=== PATIENT | male | born 1950 | race Caucasian/White ===

== ENCOUNTER 2023-09-02 20:51 | Inpatient (IN) | payer MEDICARE, OTHER ==
[~2023-09-02] VITALS: Ht 180.3 cm; Wt 73.5 kg
[~2023-09-02 20:51] MED LIST: ACET-2247 PO; ALLO-45 PO; ASPI-1227 PO; ATOR20TA PO; CHLO3800 TP; DOCU-385 PO; HEPA500018 SQ; INSU100V SQ; ISOS30TA92 PO; KETO15CR2 TP; LEVO100 PO; MERO1VIA27 IV; MEROPENEM 1 GM in SODIUM CHLORIDE 0.9% 100 ML IV SCH; SOTA80TA20 PO; VANC750F IV
[2023-09-02] MEDS ORDERED: 0.9% SODIUM CHLORIDE 10 ML SYRINGE IVP PRN (21:15)
[2023-09-02] MEDS: LORazepam 2 MG/ML VIAL IVP ONE (21:35)
[2023-09-02 22:03] LABS: ANION GAP 8 mmol/L (8-16); CALCIUM, TOTAL 9.2 mg/dL (8.8-10.5); CARBON DIOXIDE 31 mmol/L (22-29); CHLORIDE 102 mmol/L (98-107); CREATININE 1.21 mg/dL (0.60-1.30); GLOMERULAR FILTR. RATE CALC 59 mL/min (>60); GLUCOSE,RANDOM 225 mg/dL (70-110); POTASSIUM 3.4 mmol/L (3.5-5.1); SODIUM SERUM 141 mmol/L (136-145); UREA NITROGEN, BLOOD 27 mg/dL (7-18)
[2023-09-02 22:09] LABS: ALANINE AMINOTRANSFERASE 23 U/L (12-78); ALBUMIN 2.5 g/dL (3.4-5.0); ALKALINE PHOSPHATASE 67 U/L (46-116); ASPARTATE AMINOTRANSFERASE 23 U/L (15-37); BILIRUBIN,TOTAL 0.2 mg/dL (0.1-1.0); TOTAL PROTEIN, SERUM 8.3 g/dL (6.4-8.2)
[2023-09-02 22:12] LABS: BASOPHILS % (AUTO) 0.6 % (0.0-2.0); EOSINOPHILS % (AUTO) 0.1 % (1.0-6.0); HEMATOCRIT 40.9 % (41-53); HEMOGLOBIN 13.1 g/dL (13.5-17.5); LYMPHOCYTES # (AUTO) 0.8 K/uL (1.0-4.8); LYMPHOCYTES % (AUTO) 13.5 % (22.0-44.0); MEAN CORPUSCULAR HEMOGLOBIN 30.4 pg (26.0-34.0); MEAN CORPUSCULAR VOLUME 95 fL (80-100); MONOCYTES # (AUTO) 0.3 K/uL (0.1-1.0); NEUTROPHILS # (AUTO) 4.5 K/uL (1.8-7.7); NEUTROPHILS % (AUTO) 80.8 % (40.0-70.0); PLATELET COUNT (AUTO) 205 K/uL (150-450); RED CELL DISTRIBUTION WIDTH 15.2 % (11.5-14.5); TROPONIN I-HIGH SENSITIVITY 48 ng/L (<76); WHITE BLOOD COUNT (AUTO) 5.6 K/uL (4.5-11.0)
[2023-09-02 22:18] LABS: B-TYPE NATRIURETIC PEPTIDE 1080 pg/mL (0-100); INR 1.1 (0.9-1.1); PROTHROMBIN TIME 11.9 SEC (9.4-11.6)
[2023-09-02 22:32] LABS: LACTIC ACID 6.3 mmol/L (0.4-2.0)
[2023-09-02] MEDS: LevETIRAcetam 1,500 MG in DEXTROSE 5%-WATER 100 ML IV ONE (23:28)
[2023-09-02] MEDS: FUROSEMIDE 40 MG/4 ML VIAL IVP ONE (23:29)
[2023-09-02] MEDS: *CLINICAL-MEROPENEM DOSING CLINICAL ONE (23:39)
[2023-09-02 23:44] LABS: COVID AG,FIA SOURCE NASAL SWAB
[2023-09-02] MEDS ORDERED: BISACODYL 10 MG RECTAL RECTAL SUPPOSITORY PR PRN (23:45)
[2023-09-02] MEDS ORDERED: ONDANSETRON HCL 4 MG/2 ML VIAL IVP PRN (23:45)
[2023-09-02] MEDS ORDERED: INSULIN LISPRO 100 UNITS/ML SQ PRN (23:45)
[2023-09-03] LABS: SARS-COV2 (COVID) ANTIGEN,FIA Negative (Negative)
[2023-09-03 00:01] LABS: INFLUENZA TYPE A NEGATIVE FOR TYPE A (NEGATIVE); INFLUENZA TYPE B NEGATIVE FOR TYPE B (NEGATIVE)
[2023-09-03] MEDS: HEPARIN SODIUM,PORCINE 5,000 UNITS/ML VIAL SQ SCH (00:08)
[2023-09-03] MEDS: LORazepam 2 MG/ML VIAL IVP ONE (00:22)
[2023-09-03] MEDS: MEROPENEM 1 GM in SODIUM CHLORIDE 0.9% 100 ML IV SCH (00:48)
[2023-09-03 01:03] LABS: APPEARANCE,URINE CLEAR (CLEAR); BILIRUBIN,URINE NEGATIVE (NEGATIVE); COLOR,URINE COLORLESS (YELLOW); GLUCOSE, URINE (UA) NEGATIVE (NEGATIVE); KETONES,URINE NEGATIVE (NEGATIVE); LEUKOCYTE ESTERASE ,URINE MODERATE (NEGATIVE); NITRATE,URINE POSITIVE (NEGATIVE); OCCULT BLOOD,URINE TRACE (NEGATIVE); PH,URINE 5.5 (5.0-8.0); PROTEIN,URINE TRACE mg/dL (NEGATIVE); SPECIFIC GRAVITIY, URINE 1.009 (1.003-1.030); UROBILINOGEN,URINE <=1.0 mg/dL (<=1.0)
[2023-09-03 01:28] LABS: BACTERIA,URINE Few /HPF (None Seen); RBC,URINE 0-2 /HPF (0-2); SQUAMOUS EPITHELIAL CELL,UR Rare /LPF (None Seen)
[2023-09-03] MEDS: LABETALOL HCL 5 MG/ML 20 ML VIAL IVP ONE (02:07)
[2023-09-03 04:00] VITALS: BP 143/82; PULSE 82; RESP 18
[2023-09-03 07:59] VITALS: BP 131/61; PULSE 92; TEMP 101.1
[2023-09-03] MEDS ORDERED: SODIUM CHLORIDE 0.9% 500 ML IV ONE (08:19)
[2023-09-03] MEDS: PANTOPRAZOLE SODIUM 40 MG/VIAL IVP SCH (08:21)
[2023-09-03] MEDS: DOCUSATE SODIUM 100 MG CAPSULE PO SCH (08:29)
[2023-09-03] MEDS: ACETAMINOPHEN 650 MG RECTAL SUPPOSITORY PR PRN (09:25)
[2023-09-03 12:10] VITALS: BP 150/76; PULSE 56; RESP 18; TEMP 98.5
[2023-09-03 16:24] VITALS: BP 156/93; PULSE 91; RESP 18; TEMP 100.1
[2023-09-03 20:01] VITALS: BP 141/92; PULSE 94; RESP 22; TEMP 100.1
[2023-09-03 20:56] LABS: GLUCOMETER DEV NAME(LOC) 5S.1B; GLUCOSE,POINT OF CARE 113 MG/DL (70-110)
[2023-09-03 20:56] LABS: GLUCOMETER DEV NAME(LOC) 5S.1B; GLUCOSE,POINT OF CARE 164 MG/DL (70-110)
[2023-09-03 22:15] LABS: GLUCOMETER DEV NAME(LOC) 5N.1D; GLUCOSE,POINT OF CARE 142 MG/DL (70-110)
[2023-09-03 22:15] LABS: GLUCOMETER DEV NAME(LOC) 5N.1D; GLUCOSE,POINT OF CARE 129 MG/DL (70-110)
[2023-09-04] VITALS (13 sets, daily range): BP systolic 133–191; BP diastolic 78–111; PULSE 54–124; RESP 18–28; TEMP 99.1–103
[2023-09-04 00:31] LABS: GLUCOMETER DEV NAME(LOC) 5S.1B; GLUCOSE,POINT OF CARE 109 MG/DL (70-110)
[2023-09-04] MEDS: ACETAMINOPHEN 650 MG/ISO-OSM 65 ML IV ONE (00:48)
[2023-09-04 02:15] LABS: APPEARANCE,URINE TURBID (CLEAR); BILIRUBIN,URINE NEGATIVE (NEGATIVE); COLOR,URINE YELLOW (YELLOW); GLUCOSE, URINE (UA) NEGATIVE (NEGATIVE); KETONES,URINE TRACE mg/dL (NEGATIVE); LEUKOCYTE ESTERASE ,URINE LARGE (NEGATIVE); NITRATE,URINE NEGATIVE (NEGATIVE); OCCULT BLOOD,URINE MODERATE (NEGATIVE); PH,URINE 5.5 (5.0-8.0); PROTEIN,URINE 100-200,SEE CONFIRM mg/dL (NEGATIVE); SPECIFIC GRAVITIY, URINE 1.022 (1.003-1.030); UROBILINOGEN,URINE <=1.0 mg/dL (<=1.0)
[2023-09-04 02:23] LABS: BACTERIA,URINE Few /HPF (None Seen); SQUAMOUS EPITHELIAL CELL,UR None Seen /LPF (None Seen); SULFOSALICYLIC ACID,URINE 1+ (Negative); WBC,URINE >100 /HPF (0-5)
[2023-09-04] MEDS ORDERED: MAGNESIUM OXIDE 400 MG TABLET PO PRN (03:15)
[2023-09-04] MEDS ORDERED: MAGNESIUM SULFATE 4 GM/WATER 100 ML IV PRN (03:15)
[2023-09-04] MEDS ORDERED: MAGNESIUM SULFATE 2 GM/WATER 50 ML IV PRN (03:15)
[2023-09-04 04:37] LABS: BASOPHILS % (AUTO) 0.4 % (0.0-2.0); EOSINOPHILS % (AUTO) 0 % (1.0-6.0); HEMATOCRIT 40.5 % (41-53); HEMOGLOBIN 13.3 g/dL (13.5-17.5); LYMPHOCYTES # (AUTO) 1.2 K/uL (1.0-4.8); LYMPHOCYTES % (AUTO) 13.9 % (22.0-44.0); MEAN CORPUSCULAR HEMOGLOBIN 30.9 pg (26.0-34.0); MEAN CORPUSCULAR HGB CONC 32.8 G/dL (31.0-37.0); MEAN CORPUSCULAR VOLUME 94 fL (80-100); MONOCYTES # (AUTO) 0.9 K/uL (0.1-1.0); MONOCYTES % (AUTO) 10.6 % (2.0-9.0); NEUTROPHILS # (AUTO) 6.5 K/uL (1.8-7.7); NEUTROPHILS % (AUTO) 75.1 % (40.0-70.0); PLATELET COUNT (AUTO) 196 K/uL (150-450); RED CELL DISTRIBUTION WIDTH 14.8 % (11.5-14.5); WHITE BLOOD COUNT (AUTO) 8.6 K/uL (4.5-11.0)
[2023-09-04 04:44] LABS: ANION GAP 1 mmol/L (8-16); CALCIUM, TOTAL 9.3 mg/dL (8.8-10.5); CARBON DIOXIDE 40 mmol/L (22-29); CHLORIDE 107 mmol/L (98-107); CREATININE 1.02 mg/dL (0.60-1.30); GLOMERULAR FILTR. RATE CALC > 60 mL/min (>60); GLUCOSE,RANDOM 132 mg/dL (70-110); POTASSIUM 3.8 mmol/L (3.5-5.1); SODIUM SERUM 148 mmol/L (136-145); UREA NITROGEN, BLOOD 28 mg/dL (7-18)
[2023-09-04 04:48] LABS: PHOSPHORUS 3.5 mg/dL (2.5-4.9)
[2023-09-04 06:07] LABS: GLUCOMETER DEV NAME(LOC) 5S.1B; GLUCOSE,POINT OF CARE 118 MG/DL (70-110)
[2023-09-04] MEDS: VANCOMYCIN 1GM/WATER(PEG/NADA) 200 ML IV ONE (11:47)
[2023-09-04] MEDS: HydrALAZINE HCL 20 MG/ML VIAL IVP PRN (12:49)
[2023-09-04] MEDS: CloNIDine HCL 0.1 MG TABLET PO PRN (16:08)
[2023-09-04] MEDS: ACETAMINOPHEN 650 MG/ISO-OSM 65 ML IV PRN (19:59)
[2023-09-04] MEDS: VANCOMYCIN 1GM/WATER(PEG/NADA) 200 ML IV SCH (20:17)
[2023-09-04 20:31] LABS: GLUCOMETER DEV NAME(LOC) 5S.1B; GLUCOSE,POINT OF CARE 122 MG/DL (70-110)
[2023-09-04 20:31] LABS: GLUCOMETER DEV NAME(LOC) 5S.1B; GLUCOSE,POINT OF CARE 124 MG/DL (70-110)
[2023-09-04 21:35] LABS: GLUCOMETER DEV NAME(LOC) 5N.1D; GLUCOSE,POINT OF CARE 114 MG/DL (70-110)
[2023-09-04] MEDS ORDERED: CloNIDine HCL 0.1 MG TABLET NG PRN (23:45)
[2023-09-05] VITALS (8 sets, daily range): BP systolic 125–155; BP diastolic 57–97; PULSE 47–99; RESP 20–28; TEMP 98.7–102.7
[2023-09-05] MEDS: LORazepam 2 MG/ML VIAL IVP PRN (04:12)
[2023-09-05 06:44] LABS: ANION GAP 5 mmol/L (8-16); CALCIUM, TOTAL 9.3 mg/dL (8.8-10.5); CARBON DIOXIDE 36 mmol/L (22-29); CHLORIDE 109 mmol/L (98-107); CREATININE 0.93 mg/dL (0.60-1.30); GLOMERULAR FILTR. RATE CALC > 60 mL/min (>60); GLUCOSE,RANDOM 118 mg/dL (70-110); SODIUM SERUM 150 mmol/L (136-145); UREA NITROGEN, BLOOD 33 mg/dL (7-18)
[2023-09-05 06:47] LABS: POTASSIUM 2.8 mmol/L (3.5-5.1)
[2023-09-05] MEDS: POTASSIUM CHL 10 MEQ/WATER 50 ML IV PRN (06:53)
[2023-09-05] MEDS ORDERED: SODIUM CHLORIDE 0.9% 500 ML IV ONE (08:28)
[2023-09-05] MEDS: DEXTROSE 5%-WATER 1,000 ML IV SCH (10:25)
[2023-09-05] MEDS: LORazepam 2 MG/ML VIAL IVP ONE (14:30)
[2023-09-05 17:50] LABS: GLUCOMETER DEV NAME(LOC) 5S.1B; GLUCOSE,POINT OF CARE 86 MG/DL (70-110)
[2023-09-05 17:50] LABS: GLUCOMETER DEV NAME(LOC) 5S.1B; GLUCOSE,POINT OF CARE 79 MG/DL (70-110)
[2023-09-05] MEDS: POTASSIUM CHLORIDE 20 MEQ ER TABLET PO PRN (20:14)
[2023-09-05 20:21] LABS: GLUCOMETER DEV NAME(LOC) 5N.1D; GLUCOSE,POINT OF CARE 130 MG/DL (70-110)
[2023-09-05 21:25] LABS: GLUCOMETER DEV NAME(LOC) 5S.1B; GLUCOSE,POINT OF CARE 96 MG/DL (70-110)
[2023-09-06] VITALS (9 sets, daily range): BP systolic 90–159; BP diastolic 51–90; PULSE 79–99; RESP 17–30; TEMP 99.9–103.1
[2023-09-06 06:35] LABS: GLUCOMETER DEV NAME(LOC) 5S.1B; GLUCOSE,POINT OF CARE 98 MG/DL (70-110)
[2023-09-06 07:07] LABS: ANION GAP 4 mmol/L (8-16); CALCIUM, TOTAL 8.6 mg/dL (8.8-10.5); CARBON DIOXIDE 35 mmol/L (22-29); CHLORIDE 106 mmol/L (98-107); CREATININE 0.78 mg/dL (0.60-1.30); GLOMERULAR FILTR. RATE CALC > 60 mL/min (>60); GLUCOSE,RANDOM 99 mg/dL (70-110); POTASSIUM 3.7 mmol/L (3.5-5.1); SODIUM SERUM 145 mmol/L (136-145); UREA NITROGEN, BLOOD 23 mg/dL (7-18); VANCOMYCIN,RANDOM 25.4 mcg/mL (25.0-50.0)
[2023-09-06] MEDS: VANCOMYCIN 750 MG/WATER(PEG) 150 ML IV SCH (08:50)
[2023-09-06] MEDS: LevETIRAcetam 500 MG in DEXTROSE 5%-WATER 100 ML IV SCH (11:17)
[2023-09-06 20:12] LABS: GLUCOMETER DEV NAME(LOC) 5S.1B; GLUCOSE,POINT OF CARE 112 MG/DL (70-110)
[2023-09-06 20:12] LABS: GLUCOMETER DEV NAME(LOC) 5S.1B; GLUCOSE,POINT OF CARE 78 MG/DL (70-110)
[2023-09-06 20:12] LABS: GLUCOMETER DEV NAME(LOC) 5S.1B; GLUCOSE,POINT OF CARE 66 MG/DL (70-110)
[2023-09-07] VITALS (10 sets, daily range): BP systolic 92–142; BP diastolic 55–83; PULSE 78–110; RESP 18–32; TEMP 98.9–103.2
[2023-09-07 01:11] LABS: GLUCOMETER DEV NAME(LOC) 5N.1D; GLUCOSE,POINT OF CARE 104 MG/DL (70-110)
[2023-09-07 09:10] LABS: LDL CHOLESTEROL DIRECT 89 mg/dL (0-99)
[2023-09-07 10:37] LABS: ANION GAP 8 mmol/L (8-16); CALCIUM, TOTAL 8.8 mg/dL (8.8-10.5); CARBON DIOXIDE 31 mmol/L (22-29); CHLORIDE 101 mmol/L (98-107); CREATININE 0.89 mg/dL (0.60-1.30); GLOMERULAR FILTR. RATE CALC > 60 mL/min (>60); GLUCOSE,RANDOM 90 mg/dL (70-110); POTASSIUM 3.2 mmol/L (3.5-5.1); SODIUM SERUM 139 mmol/L (136-145); UREA NITROGEN, BLOOD 20 mg/dL (7-18)
[2023-09-07] MEDS: DEXTROSE 50%-WATER 25 GM/50 ML SYRINGE IVP PRN (11:48)
[2023-09-07 12:10] LABS: GLUCOMETER DEV NAME(LOC) 5N.1D; GLUCOSE,POINT OF CARE 93 MG/DL (70-110)
[2023-09-07 12:10] LABS: GLUCOMETER DEV NAME(LOC) 5N.1D; GLUCOSE,POINT OF CARE 72 MG/DL (70-110)
[2023-09-07 12:10] LABS: GLUCOMETER DEV NAME(LOC) 5N.1D; GLUCOSE,POINT OF CARE 87 MG/DL (70-110)
[2023-09-07 16:53] LABS: GLUCOMETER DEV NAME(LOC) 5N.1D; GLUCOSE,POINT OF CARE 125 MG/DL (70-110)
[2023-09-07 22:46] LABS: GLUCOMETER DEV NAME(LOC) 5S.1B; GLUCOSE,POINT OF CARE 81 MG/DL (70-110)
[2023-09-08] VITALS (20 sets, daily range): BP systolic 122–175; BP diastolic 71–96; PULSE 62–102; RESP 24–36; TEMP 98.5–103; O2SAT 88–91
[2023-09-08 07:16] LABS: BASOPHILS % (AUTO) 0.3 % (0.0-2.0); EOSINOPHILS % (AUTO) 0.3 % (1.0-6.0); HEMOGLOBIN 13.4 g/dL (13.5-17.5); MEAN CORPUSCULAR HEMOGLOBIN 30.6 pg (26.0-34.0); MEAN CORPUSCULAR HGB CONC 32.8 G/dL (31.0-37.0); MEAN CORPUSCULAR VOLUME 93 fL (80-100); MONOCYTES # (AUTO) 0.4 K/uL (0.1-1.0); MONOCYTES % (AUTO) 5.1 % (2.0-9.0); NEUTROPHILS # (AUTO) 6.9 K/uL (1.8-7.7); NEUTROPHILS % (AUTO) 82.3 % (40.0-70.0); PLATELET COUNT (AUTO) 119 K/uL (150-450); RED CELL DISTRIBUTION WIDTH 15.2 % (11.5-14.5); WHITE BLOOD COUNT (AUTO) 8.4 K/uL (4.5-11.0)
[2023-09-08] MEDS: ACETAMINOPHEN 325 MG TABLET PO PRN (07:20)
[2023-09-08 07:47] LABS: ANION GAP 10 mmol/L (8-16); CALCIUM, TOTAL 8.3 mg/dL (8.8-10.5); CARBON DIOXIDE 29 mmol/L (22-29); CHLORIDE 99 mmol/L (98-107); CREATININE 0.78 mg/dL (0.60-1.30); GLOMERULAR FILTR. RATE CALC > 60 mL/min (>60); GLUCOSE,RANDOM 106 mg/dL (70-110); SODIUM SERUM 138 mmol/L (136-145); UREA NITROGEN, BLOOD 19 mg/dL (7-18)
[2023-09-08 07:50] LABS: POTASSIUM 2.8 mmol/L (3.5-5.1)
[2023-09-08] MEDS: DOCUSATE SODIUM 100 MG/10 ML LIQUID UDCUP NG SCH (09:30)
[2023-09-08 09:52] LABS: GLUCOMETER DEV NAME(LOC) 5S.1B; GLUCOSE,POINT OF CARE 93 MG/DL (70-110)
[2023-09-08 09:52] LABS: GLUCOMETER DEV NAME(LOC) 5S.1B; GLUCOSE,POINT OF CARE 115 MG/DL (70-110)
[2023-09-08 09:52] LABS: GLUCOMETER DEV NAME(LOC) 5S.1B; GLUCOSE,POINT OF CARE 109 MG/DL (70-110)
[2023-09-08 10:18] LABS: ABG CARBOXYHEMOGLOBIN 0.1 % (0.0-1.5); ABG HCO3 28.1 mmol/L (22.0-26.0); ABG METHEMOGLOBIN 0.1 % (0.0-1.5); ABG OXYGEN CONTENT 19.6 mL/dL (15.0-23.0); ABG OXYGEN SATURATION 99.8 % (95.0-98.0); ABG OXYHEMOGLOBIN 99.6 % (94.0-100.0); ABG PCO2 37 mmHg (35-45); ABG PH 7.485 (7.35-7.450); ABG TOTAL HEMOGLOBIN 13.4 G/dL (12.0-18.0); PO2, ARTERIAL BG 337.9 mmHg (75.0-83.0); SOURCE, BLOOD GAS ARTERIAL; TEMPERATURE, FAHRENHEIT, BG 98.7 FAHREN (96.0-98.6)
[2023-09-08 10:19] LABS: ALLEN TEST, BLOOD GAS POS; O2 DEVICE,BLOOD GAS NON-REB (ROOM AIR); SITE, BLOOD GAS RT RADIAL
[2023-09-08 12:11] LABS: GLUCOMETER DEV NAME(LOC) 5S.1B; GLUCOSE,POINT OF CARE 97 MG/DL (70-110)
[2023-09-08 20:22] LABS: GLUCOMETER DEV NAME(LOC) 5N.1D; GLUCOSE,POINT OF CARE 110 MG/DL (70-110)
[2023-09-08 20:31] LABS: GLUCOMETER DEV NAME(LOC) 5S.1B; GLUCOSE,POINT OF CARE 111 MG/DL (70-110)
[2023-09-08 22:00] LABS: GLUCOMETER DEV NAME(LOC) 5N.1D; GLUCOSE,POINT OF CARE 43 MG/DL (70-110)
[2023-09-08 22:00] LABS: GLUCOMETER DEV NAME(LOC) 5N.1D; GLUCOSE,POINT OF CARE 72 MG/DL (70-110)
[2023-09-09] VITALS (16 sets, daily range): BP systolic 119–176; BP diastolic 52–118; PULSE 53–85; RESP 18–36; TEMP 97.8–102.2; O2SAT 90–96
[2023-09-09 07:05] LABS: GLUCOMETER DEV NAME(LOC) 5N.1D; GLUCOSE,POINT OF CARE 94 MG/DL (70-110)
[2023-09-09] MEDS: VANCOMYCIN 1GM/WATER(PEG/NADA) 200 ML IV SCH (07:44)
[2023-09-09 09:11] LABS: GLUCOMETER DEV NAME(LOC) 5N.1D; GLUCOSE,POINT OF CARE 76 MG/DL (70-110)
[2023-09-09 09:52] LABS: ANION GAP 5 mmol/L (8-16); CALCIUM, TOTAL 8.5 mg/dL (8.8-10.5); CARBON DIOXIDE 32 mmol/L (22-29); CHLORIDE 96 mmol/L (98-107); CREATININE 0.89 mg/dL (0.60-1.30); GLOMERULAR FILTR. RATE CALC > 60 mL/min (>60); GLUCOSE,RANDOM 193 mg/dL (70-110); POTASSIUM 3.7 mmol/L (3.5-5.1); SODIUM SERUM 133 mmol/L (136-145); UREA NITROGEN, BLOOD 16 mg/dL (7-18)
[2023-09-09 11:01] LABS: GLUCOMETER DEV NAME(LOC) 5N.1D; GLUCOSE,POINT OF CARE 74 MG/DL (70-110)
[2023-09-09 15:20] LABS: GLUCOMETER DEV NAME(LOC) 5N.1D; GLUCOSE,POINT OF CARE 91 MG/DL (70-110)
[2023-09-09 18:31] LABS: GLUCOMETER DEV NAME(LOC) 5N.1D; GLUCOSE,POINT OF CARE 108 MG/DL (70-110)
== END 2023-09-09 20:30 | DRG 871 ==
LOC: EMS 20:51 → EDH 09-03 02:58 → 5N 09-03 03:44
PROVIDERS: ADMIT Internal Medicine; ATTEND Internal Medicine
PROC: 5A09357 Assistance with Respiratory Ventilation, Less than 24 Consecutive Hours, Continuous Positive Airway Pressure (ICD-10-PCS; principal; 2023-09-08)
DX: A41.9 Sepsis, unspecified organism (principal); E43 Unspecified severe protein-calorie malnutrition; G93.41 Metabolic encephalopathy; I50.23 Acute on chronic systolic (congestive) heart failure; J69.0 Pneumonitis due to inhalation of food and vomit; J96.91 Respiratory failure, unspecified with hypoxia; E87.0 Hyperosmolality and hypernatremia; N39.0 Urinary tract infection, site not specified; Z20.822 Contact with and (suspected) exposure to COVID-19; I49.5 Sick sinus syndrome; I73.9 Peripheral vascular disease, unspecified; F32.A Depression, unspecified; M10.9 Gout, unspecified; F03.90 Unspecified dementia, unspecified severity, without behavioral disturbance, psychotic disturbance, mood disturbance, and anxiety; R62.7 Adult failure to thrive; R56.9 Unspecified convulsions; I11.0 Hypertensive heart disease with heart failure; E11.51 Type 2 diabetes mellitus with diabetic peripheral angiopathy without gangrene; Z66 Do not resuscitate; Z74.01 Bed confinement status; Z91.018 Allergy to other foods
CPT/HCPCS: 36600; 70450; 71045; 80048; 80053; 80202; 81001; 81002; 82805; 82962; 83605; 83721; 83735; 83880; 84100; 84132; 84145; 84484; 85025; 85610; 87040; 87086; 87186; 87804; 93005; 94660; 94799; 95816; 99291; C9113; J0131; J0360; J0712; J1644; J1940; J2060; J2185; J3480; J3490; J7040; J7050; J7060; Q9967; 36415-L1; 36415-TC